=== PATIENT | female | born 1985 | race Caucasian/White ===

== ENCOUNTER → 2018-10-28 | Outpatient (CLI) | payer OTHER ==
[~2018-10-28] MED LIST: Hair, Skin & N1 EACH PO; SERT25 PO
[2018-10-30 01:07] LABS: HBSAG SCREEN Negative (Negative); HEP A AB, IGM Negative (Negative); HEP B CORE AB, IGM Negative (Negative); HEP C VIRUS AB <0.1 (0.0-0.9); HIV SCREEN 4TH GENERATION WRFX Non Reactive (Non Reactive)
[2018-10-30 21:06] LABS: CHLAMYDIA TRACHOMATIS, NAA Negative (Negative); NEISSERIA GONORRHOEAE, NAA Negative (Negative)
== END | disposition home or self-care (01) ==
LOC: LAB 15:01 → LAB SHORT 15:01
PROVIDERS: Physician Assistant
DX: N72 Inflammatory disease of cervix uteri (principal)
CPT/HCPCS: 80074; 86592; 87389; 87491; 87529; 87591

== ENCOUNTER 2019-06-29 18:29 | Emergency (ER) | payer OTHER ==
[~2019-06-29] VITALS: Ht 175.3 cm; Wt 104.3 kg
[2019-06-29] MEDS ORDERED: EFFEXOR XR37.5 MG PO (18:47)
[2019-06-29] MEDS ORDERED: Sprintec1 EACH PO (18:47)
[2019-06-29] MEDS ORDERED: Prednisone20 MG PO (19:17)
[2019-06-29] MEDS ORDERED: Augmentin 875-1 EACH PO (19:17)
== END 2019-06-29 19:34 | disposition home or self-care (01) ==
LOC: ER 18:29
DX: T63.481A Toxic effect of venom of other arthropod, accidental (unintentional), initial encounter (principal); S60.461A Insect bite (nonvenomous) of left index finger, initial encounter; S51.851A Open bite of right forearm, initial encounter; L03.113 Cellulitis of right upper limb; L03.012 Cellulitis of left finger; Z79.899 Other long term (current) drug therapy; W54.0XXA Bitten by dog, initial encounter
CPT/HCPCS: 99283; J7512

== ENCOUNTER → 2020-12-01 | Outpatient (CLI) | payer SELFPAY ==
[~2020-12-01] MED LIST changes: +Augmentin 875-1 EACH PO; +EFFEXOR XR37.5 MG PO; +Prednisone20 MG PO; +Sprintec1 EACH PO
[2020-12-02 15:09] LABS: HPV 16 Negative (Negative); HPV 18 Negative (Negative); HPV OTHER HR TYPES Negative (Negative)
== END | disposition home or self-care (01) ==
LOC: LAB SHORT 15:17
PROVIDERS: Advanced Practice Midwife
DX: Z01.419 Encounter for gynecological examination (general) (routine) without abnormal findings (principal)
CPT/HCPCS: 87624; G0123